=== PATIENT | female | born 1970 | race Two or more races ===

== ENCOUNTER 2024-03-30 15:34 | Emergency (ER) | payer OTHER ==
[~2024-03-30] VITALS: Ht 162.6 cm; Wt 68.0 kg
[2024-03-30] MEDS ORDERED: SYNTHROID75 MCG (16:02)
[2024-03-30] MEDS ORDERED: COZAAR25 MG (16:02)
[2024-03-30 17:43] LABS: HEMATOCRIT 41.2 % (36.0-45.00); HEMOGLOBIN 14.3 g/dL (12.0-15.00); MEAN CELL VOLUME 92.8 fL (80.00-100.00); MEAN CORPUSCULAR HEMOGLOBIN 32.3 pg (27.00-32.0); MEAN CORPUSCULAR HGB CONC 34.8 g/dl (32.0-36.0); PLATELET COUNT 245 K/uL (150-450); RED BLOOD COUNT 4.44 M/uL (4.00-6.00); RED CELL DISTRIBUTION WIDTH 12.4 % (11.5-14.5)
[2024-03-30 17:56] LABS: ALBUMIN 3.8 gm/dL (3.4-5.0); BILIRUBIN TOTAL 0.22 mg/dL (0.3-1.2); CALCIUM 9.5 mg/dL (8.5-10.1); CREATININE SERUM 1.08 mg/dL (0.55-1.02); GFR 53.07; GLOBULINA 3.8 G/DL (2.4-3.5); POTASSIUM 4.31 mEq/L (3.5-5.1); TOTAL PROTEIN 7.6 gm/dL (6.4-8.2)
[2024-03-30 18:59] LABS: PH,URINE 7.5 (5.0-8.0); URINE APPEARANCE Cloudy; URINE BILIRRUBIN Negative (NEGATIVE); URINE BLOOD Negative; URINE COLOR Yellow; URINE GLUCOSE Negative (NEGATIVE); URINE KETONE Negative (NEGATIVE); URINE LEUKOCYTE Negative; URINE NITRATE Negative; URINE PROTEIN Negative (NEGATIVE); URINE UROBILINOGEN 0.2 E.U./dl
[2024-03-30 19:04] LABS: URINE BACTERIA 415.7 uL (0.0-1933); URINE EPITHELIAL CELLS 111.3 uL (0.0-38.8); URINE RBC 2.2 uL (0.0-20.8); URINE WBC 56.1 uL (0.0-23.2)
[2024-03-30 19:48] LABS: URINE CAST 0.15 uL (0.0-1.40)
== END 2024-03-31 01:50 | disposition left against medical advice (07) ==
LOC: ER 15:36
PROVIDERS: Emergency Medicine
DX: K63.89 Other specified diseases of intestine (principal); R10.9 Unspecified abdominal pain; Z88.2 Allergy status to sulfonamides; Z88.6 Allergy status to analgesic agent
CPT/HCPCS: 36415; 74177; Q9965